=== PATIENT | male | born 1990 | race African-American/Black ===

== ENCOUNTER 2018-10-19 12:11 | Emergency (ER) | payer MEDICAID ==
[~2018-10-19] VITALS: Ht 175.3 cm; Wt 70.0 kg
[~2018-10-19 12:11] MED LIST: PHEN100C4 PO
[2018-10-19] MEDS ORDERED: SODIUM CHLORIDE 0.9% 1,000 ML IV ONE (13:25)
[2018-10-19] MEDS ORDERED: LORAZEPAM 2MG/ML CPJ IV ONE (13:30)
[2018-10-19 15:00] VITALS: BP 137/92
== END 2018-10-19 15:13 | disposition home or self-care (01) ==
LOC: ER 12:44
DX: R00.0 Tachycardia, unspecified (principal); F15.10 Other stimulant abuse, uncomplicated; F41.9 Anxiety disorder, unspecified; R56.9 Unspecified convulsions
CPT/HCPCS: 93005; 96361; 96374; 99283; J2060; J7030

== ENCOUNTER 2019-03-30 08:59 | Day surgery (SDC) | payer MEDICAID ==
[~2019-03-30] VITALS: Ht 175.3 cm; Wt 63.5 kg
[2019-03-30] MEDS ORDERED: SODIUM BICARBONATE 4% (2.4MEQ) 5ML VIAL IV ONE (09:36)
[2019-03-30] MEDS ORDERED: LIDOCAINE HCL 1% 20ML VIAL (Pyxis) INJ ONE (09:37)
[2019-03-30 11:15] LABS: GLUCOSE CSF 61 mg/dL (41-75)
[2019-04-04 15:06] LABS: MYELIN BASIC PROTEIN CSF 1.4 ng/mL (0.0-1.2)
== END 2019-03-30 14:08 | disposition home or self-care (01) ==
LOC: ANGIO 08:59
PROVIDERS: ATTEND Psychiatry & Neurology Neurology
DX: G35 Multiple sclerosis (principal); R90.82 White matter disease, unspecified
CPT/HCPCS: 62270; 77003; 82040; 82042; 82784; 82945; 83873; 83916; 84157; 89050; J3490

== ENCOUNTER 2019-07-30 16:49 | Emergency (ER) | payer MEDICAID ==
[~2019-07-30] VITALS: Ht 175.3 cm; Wt 80.0 kg
[2019-07-30 18:45] LABS: BASOPHILS % 0.4 % (0.0-2.0); EOSINOPHILS % 0.6 % (0.0-5.0); HEMATOCRIT. 42.1 % (42.0-52.0); HEMOGLOBIN. 14.2 g/dL (14.0-18.0); LYMPHOCYTES % 21.9 % (20.0-50.0); MEAN CORPUSCULAR HEMOGLOBIN 28.7 pg (28.0-32.0); MEAN CORPUSCULAR VOLUME 84.8 fL (80.0-94.0); MEAN PLATELET VOLUME 9.8 fl (7.4-10.4); MONOCYTES % 7.5 % (2.0-8.0); NEUTROPHILS % 69.6 % (40.0-76.0); PLATELET 244 x1000/uL (130-400); RED BLOOD CELL COUNT 4.96 mill/uL (4.7-6.1); RED CELL DISTRIBUTION WIDTH 13.6 % (11.6-14.6)
[2019-07-30 18:49] LABS: CHLORIDE 105 mEq/L (98-107)
[2019-07-30 18:51] LABS: CLARITY URINE CLEAR (CLEAR); COLOR URINE YELLOW (YELLOW); KETONES URINE TRACE (NEGATIVE); LEUKOCYTE ESTERASE URINE NEGATIVE (NEGATIVE); NITRITE URINE NEGATIVE (NEGATIVE); OCCULT BLOOD URINE NEGATIVE (NEGATIVE); PH URINE 7.5 (4.5-8.0); PROTEIN URINE TRACE (NEGATIVE); SPECIFIC GRAVITY URINE 1.021 (1.005-1.030)
[2019-07-30 18:52] LABS: ETHANOL BLOOD < 10 mg/dL
[2019-07-30 19:05] LABS: *AMPHETAMINES SCREEN URINE NEGATIVE (NEGATIVE); *BARBITURATES SCREEN URINE NEGATIVE (NEGATIVE); *BENZODIAZEPINES SCREEN URINE PRESUMTIVE POSITIVE (NEGATIVE); *COCAINE SCREEN URINE NEGATIVE (NEGATIVE); METHADONE URINE SCREEN NEGATIVE (NEGATIVE); OPIATES URINE SCREEN PRESUMTIVE POSITIVE (NEGATIVE)
[2019-07-30 19:06] LABS: CANNABINOID URINE SCREEN PRESUMTIVE POSITIVE (NEGATIVE); PHENCYCLIDINE URINE SCREEN NEGATIVE (NEGATIVE)
[2019-07-30 19:41] VITALS: BP 137/91
== END 2019-07-30 19:50 | disposition home or self-care (01) ==
LOC: ER 16:49
DX: G40.909 Epilepsy, unspecified, not intractable, without status epilepticus (principal); F15.10 Other stimulant abuse, uncomplicated
CPT/HCPCS: 36415; 80185; 80305; 80320; 81003; 93005; 99284; G0480

== ENCOUNTER 2025-07-01 09:48 | Emergency (ER) | payer MEDICAID ==
[~2025-07-01] VITALS: Ht 175.3 cm; Wt 68.0 kg
[2025-07-01 09:54] VITALS: BP 118/85; PULSE 130; RESP 18; TEMP 36.6; O2SAT 98
[2025-07-01] MEDS ORDERED: SODIUM CHLORIDE 0.9% 1,000 ML IV ONE (10:15)
[2025-07-01] MEDS ORDERED: PHENYTOIN SODIUM EXTENDED 100MG CAPSULE PO ONE (10:15)
== END 2025-07-01 10:15 | disposition left against medical advice (07) ==
LOC: ER 09:48 → CMPBEDREQ 13:01
DX: G40.909 Epilepsy, unspecified, not intractable, without status epilepticus (principal); F15.90 Other stimulant use, unspecified, uncomplicated; Z79.899 Other long term (current) drug therapy
CPT/HCPCS: 99283; 93005; J7030